=== PATIENT | female | born 1985 | race Caucasian/White ===

== ENCOUNTER 2019-07-27 13:26 | Emergency (ER) | payer OTHER, SELFPAY ==
[2019-07-27 13:57] VITALS: BP 158/98; PULSE 109; RESP 20; TEMP 36.8; O2SAT 97
--- NOTE | 2019-07-27 14:20 | ED.DENTAL ---
HPI - Dental/Oral General Chief complaint: Dental/Oral Stated complaint: tooth pain with swelling Time Seen by Provider: 07/27/19 14:20 Source: patient Mode of arrival: ambulatory Limitations: no limitations History of Present Illness HPI Narrative: Bob Caceres is a 34 yo female with swollen right cheek from dental abscess that started 2 days ago. Swelling increased overnight, difficulty closing mouth. Appears that his tooth 30/31 that is affected Related Data Home Medications Medication Instructions Recorded Confirmed cyclobenzaprine 10 mg PO TID 07/27/19 07/27/19 Allergies Allergy/AdvReac Type Severity Reaction Status Date / Time No Known Allergies Allergy Verified 07/27/19 14:10 Review of Systems Review of Systems: Narrative: CONSTITUTIONAL: Denies fever, chills, sweats. EYES: Denies visual changes, redness, discharge. ENT: Denies rhinorrhea, congestion, sore throat, otalgia. Tooth pain with right cheek swelling CARDIOVASCULAR: Denies chest pain, palpitations, edema. RESPIRATORY: Denies dyspnea, wheezing, cough GASTROINTESTINAL: Denies abdominal pain, nausea, vomiting, diarrhea. GENITOURINARY: Denies dysuria, hematuria, abnormal discharge SKIN: Denies rash or itching. NEUROLOGIC: Denies numbness, or focal weakness. PSYCHIATRIC: Denies anxiety or depression. [facility] Family History Family History Other No acute medical problems Social History Social History Smoking status: Never smoker Alcohol intake: current Comments At time of signature, I agree with nursing past medical, surgical, social and family history. There is no relevant family history pertinent to the presenting complaint. Exam Narrative: Exam Narrative: GENERAL: This is a well-nourished, well-developed patient, in moderate distress. HEAD: normocephalic, atraumatic. EYES: Sclera clear/white. Vision is grossly intact. EARS: External ears normal, auditory canals clear and without drainage, TMs normal without perforation. Hearing grossly intact. NOSE: External nose normal with no obvious nasal discharge, nares without redness, no rhinorrhea. THROAT: Mucous membranes moist, posterior pharynx clear. Mouth: Right cheek swelling, poor dentition, teeth discolored. Abscess in the right cheek, origination of the lower teeth probably tooth 30/31 NECK: Neck supple, non-tender CARDIOVASCULAR: Regular rate and rhythm without murmurs, gallops, or rubs. RESPIRATORY: Clear to auscultation. Breath sounds equal bilaterally. No wheezes, rales, or rhonchi. GASTROINTESTINAL: Abdomen soft, non-tender, SKIN: warm, intact with no suspicious lesions or rash, good texture and turgor. NEURO: awake, alert, and oriented to person, place and time. There were no obvious focal neurologic abnormalities. Steady gait EXTREMITIES: Normal range of motion. No edema BACK: Nontender without deformity or crepitance. No flank tenderness. Course Course Emergency Course: Started on penicillin, high-dose ibuprofen, tramadol Follow-up with dentist as possible Vital Signs Vital signs: Vital Signs Temperature 98.3 F 07/27/19 13:57 Pulse Rate 109 H 07/27/19 13:57 Respiratory Rate 07/27/19 13:57 Blood Pressure 158/98 H 07/27/19 13:57 Pulse Oximetry 97 07/27/19 13:57 Temperature 98.3 F 07/27/19 13:57 Pulse Rate 109 H 07/27/19 13:57 Respiratory Rate 07/27/19 13:57 Blood Pressure 158/98 H 07/27/19 13:57 Pulse Oximetry 97 07/27/19 13:57 MDM - Dental/Oral Differential Diagnosis Differential diagnosis: Likely gingival abscess, dental abscess, fracture of tooth and other Discharge Plan Discharge Clinical Impression: Dental abscess Patient Disposition: Home, Self-Care Condition: Stable Instructions: Antibiotic Form, Dental Abscess (ED) Prescriptions: New penicillin V potassium 500 mg tablet 500 mg PO
== END 2019-07-27 14:32 | disposition home or self-care (01) ==
PROVIDERS: Emergency Provider Nurse Practitioner
DX: K04.7 Periapical abscess without sinus (principal); M79.7 Fibromyalgia
CPT/HCPCS: 99213; G0463

== ENCOUNTER 2022-07-25 16:46 | Emergency (ER) | payer OTHER, SELFPAY ==
[2022-07-25 17:01] VITALS: BP 143/89; PULSE 94; RESP 16; TEMP 36.9; O2SAT 98
--- NOTE | 2022-07-25 17:25 | ED.URI ---
HPI - URI/Sore Throat General Chief Complaint: Upper Respiratory Infection Stated Complaint: Sore Throat Source: patient and RN notes reviewed History of Present Illness HPI Narrative: 37-year-old female presents urgent care with complaints with sore throat since last night. Denies any fevers, vomiting, chest pain, shortness of breath, ear pain, or congestion. Patient has been taking ibuprofen and Tylenol at home with minimal relief. Some parts of this dictation were generated by voice recognition software and may contain typographical and/or grammatical inaccuracies. Related Data Home Medications Medication Instructions Recorded Confirmed cyclobenzaprine 10 mg tablet 10 mg PO TID 07/27/19 07/27/19 Allergies Allergy/AdvReac Type Severity Reaction Status Date / Time No Known Allergies Allergy Verified 07/27/19 14:10 Review of Systems Review of Systems: CONSTITUTIONAL: Denies fever, chills, or sweats. EYES: Denies visual changes, redness, or discharge. ENT: sore throat CARDIOVASCULAR: Denies chest pain, palpitations, or edema. RESPIRATORY: Denies cough or dyspnea. GASTROINTESTINAL: Denies abdominal pain, nausea, vomiting, or diarrhea. GENITOURINARY: Denies dysuria or hematuria. SKIN: Denies rash or itching. MUSCULOSKELETAL: Denies back pain, joint pain, or myalgia. NEUROLOGIC: Denies headache, numbness, or weakness. [facility] Family History Family History Other No acute medical problems Social History Social History Smoking status: Never smoker Alcohol intake: current Comments At the time of my signature, I reviewed and agree with the nursing past medical, surgical, social, and family history. There is no relevant family history pertinent to the patient complaint. Exam Narrative: GENERAL: This is a well-nourished, well-developed patient, in no apparent distress. HEAD: normocephalic, atraumatic. EYES: Sclera clear/white. Vision is grossly intact. EARS: External ears normal, auditory canals clear and without drainage, TMs normal without perforation. Hearing grossly intact. NOSE: External nose normal with no obvious nasal discharge, nares without redness, no rhinorrhea. THROAT: Mucous membranes moist, posterior pharynx erythemic. NECK: Neck supple, non-tender without lymphadenopathy, masses or thyromegaly. CARDIOVASCULAR: Regular rate RESPIRATORY: No respiratory distress SKIN: warm, intact with no suspicious lesions or rash, good texture and turgor. NEURO: awake, alert, and oriented to person, place and time. There were no obvious focal neurologic abnormalities. Course Course Level of Care: Express Care Visit Vital Signs Vital signs: Vital Signs Temperature 98.5 F 07/25/22 17:01 Pulse Rate 94 07/25/22 17:01 Respiratory Rate 16 07/25/22 17:01 Blood Pressure 143/89 H 07/25/22 17:01 Pulse Oximetry 98 07/25/22 17:01 Oxygen Delivery Room Air 07/25/22 17:01 Temperature 98.5 F 07/25/22 17:01 Pulse Rate 94 07/25/22 17:01 Respiratory Rate 16 07/25/22 17:01 Blood Pressure 143/89 H 07/25/22 17:01 Pulse Oximetry 98 07/25/22 17:01 Oxygen Delivery Room Air 07/25/22 17:01 Reviewed MDM - URI/Sore Throat MDM Narrative Medical decision making narrative: Rapid strep is negative in the office; however we will send to the lab for confirmation; there is a small percentage chance that it can come back positive; if it is, we will call you in 2-3days; and your prescription will be call in to your pharmacy. However, there is NO indication for antibiotic at this time. -Oral rinses such as: Salt water gargles and/or may use topical anesthetic (eg. Chloraseptic spray) or lozenges to relieve dryness or throat pain. -Take tylenol and ibuprofen as needed for pain and fever as directed. -Frequent hand washing or hand structures assembler is one of the best ways to prevent spread
== END 2022-07-25 17:30 | disposition home or self-care (01) ==
PROVIDERS: Emergency Provider Nurse Practitioner Family; PCP Internal Medicine
DX: J02.9 Acute pharyngitis, unspecified (principal); M79.7 Fibromyalgia
CPT/HCPCS: 87081; 87880; 99213; G0463

== ENCOUNTER 2025-04-29 11:24 | Emergency (ER) | payer OTHER, SELFPAY ==
--- NOTE | ~2025-04-29 | XR_ITS ---
EXAMINATION: XR hip LT 2V w AP pelvis DATE: 04/29/2025 11:56 INDICATION: Injury TECHNIQUE: Left hip and pelvis x-rays were obtained. COMPARISON: None. IMPRESSION: 1. No displaced fracture, dislocation or aggressive bone lesion. 2. Pelvic bones appear intact; liturgical music director pelvic bones partially obscured by overlying stool and bowel gas. Reviewed, dictated and finalized at location A. ITUTION[employer] NUTRITION CONSULTANT IMPRESSION: 1. No displaced fracture, dislocation or aggressive bone lesion. 2. Pelvic bones appear intact; liturgical music director pelvic bones partially obscured by overly ing stool and bowel gas.
[2025-04-29 11:32] VITALS: BP 138/79; PULSE 84; RESP 20; TEMP 36.8; O2SAT 100
--- NOTE | 2025-04-29 12:36 | ED.LOWEXIN ---
HPI - Extremity Injury (Lower) General Chief Complaint: Extremity Injury, Lower Stated Complaint: Fall Injury/Left Hip Time Seen by Provider: 04/29/25 12:15 Source: patient and RN notes reviewed Mode of arrival: ambulatory Limitations: no limitations History of Present Illness HPI Narrative: 39-year-old female Presents Express Care complaining of injury to left hip 1 week ago. Patient reports slipped on the ice outside at home and injured her left hip. Patient is in her head, loss consciousness, neck pain, back pain, or any other injuries. Patient reports pain primarily with walking or hip flexion. Patient's has been taking Tylenol or ibuprofen, ice, heat with some relief.. Patient denies any numbness, tingling or any other injuries. Patient denies any significant past medical history. Related Data Home Medications ?Medication ?Instructions ?Recorded ?Confirmed ?Last Taken ?Type bupropion HCl 150 mg 24 hr tablet, mg PO 04/29/25 Unknown History extended release venlafaxine 150 mg mg PO 04/29/25 Unknown History capsule,extended release 24 hr Allergies Allergy/AdvReac Type Severity Reaction Status Date / Time No Known Allergies Allergy Verified 04/29/25 11:34 Review of Systems Review of Systems: CONSTITUTIONAL: Denies fever, chills, or sweats. EYES: Denies visual changes, redness, or discharge. ENT: Denies rhinorrhea, congestion, sore throat, or otalgia. CARDIOVASCULAR: Denies chest pain, palpitations, or edema. RESPIRATORY: Denies cough or dyspnea. GASTROINTESTINAL: Denies abdominal pain, nausea, vomiting, or diarrhea. GENITOURINARY: Denies dysuria or hematuria. SKIN: Denies rash, wound, or itching. MUSCULOSKELETAL: Denies back pain, joint pain, or myalgia. Positive for left hip pain NEUROLOGIC: Denies headache, numbness, or weakness. PSYCHIATRIC: Denies anxiety or depression. All other systems reviewed are negative, except as documented in HPI. [facility] Family History Family History Other No acute medical problems Social History Social History Smoking status: Never smoker Alcohol intake: current Comments At the time of my signature, I reviewed and agree with the nursing past medical, surgical, social, and family history. There is no relevant family history pertinent to the patient complaint. Exam Narrative: GENERAL: This is a well-nourished, well-developed adult, in no apparent distress. They are non ill-appearing, nontoxic appearing. HEAD: normocephalic, atraumatic. EYES: Sclera clear/white. Vision is grossly intact. Conjunctiva normal. Extraocular movement intact. EARS: External ears normal Hearing grossly intact. NOSE: External nose normal THROAT: Mucous membranes moist NECK: Neck supple CARDIOVASCULAR: Regular rate and rhythm RESPIRATORY: Respiratory rate normal, respiratory effort nonlabored, no respiratory distress NEURO: awake, alert, and oriented to person, place and time. There were no obvious focal neurologic abnormalities. EXTREMITIES: No obvious deformity, injury, swelling, bruising, redness. There is pain through full range of motion. Lateral tenderness to palpation. Capillary refill less than 3 seconds. Normal sensation. Neurovascular status intact distal injury. No shortening or rotation. BACK: Nontender without deformity. Course Course Level of Care: Express Care Visit Vital Signs Vital signs: Vital Signs Temperature 98.2 F 04/29/25 11:32 Pulse Rate 84 04/29/25 11:32 Respiratory Rate 20 04/29/25 11:32 Blood Pressure 138/79 04/29/25 11:32 Pulse Oximetry 100 04/29/25 11:32 Oxygen Delivery Room Air 04/29/25 11:32 Temperature 98.2 F 04/29/25 11:32 Pulse Rate 84 04/29/25 11:32 Respiratory Rate 20 04/29/25 11:32 Blood Pressure 138/79 04/29/25 11:32 Pulse Oximetry 100 04/29/25 11:32 Oxygen Delivery Room Air 04/29/25 11:32 [facility] Narrative Medical decision making narrative: X-ray left hip negative for any fracture or acute findings. Likely hip contusion. Discussed rice therapy and supportive care. Will give her her ortho as needed if pain is persisting after 1 more week. Discussed physical exam findings. Advised supportive measures and signs/symptoms to go to the ER. Pt is appropriate for outpt treatment and f/u. Differential Diagnosis Differential Diagnosis: Hip sprain, hip contusion, hip fracture, hip bursitis Imaging Data Radiologist's impression: ITS Impressions Hip/Pelvis X-Ray 04/29/25 11:59 IMPRESSION: 1. No displaced fracture, dislocation or aggressive bone lesion. 2. 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 Critical Care Time Critical Care Time Critical Care Time: No Discharge Plan Discharge Clinical Impression: Fall Qualifiers: Encounter type: initial encounter Qualified Code(s): W19.XXXA - Unspecified fall, initial encounter Injury of hip, left Qualifiers: Encounter type: initial encounter Qualified Code(s): S79.912A - Unspecified injury of left hip, initial encounter Patient Disposition: Home Condition: Stable Instructions: Hip Pain (ED) Additional Instructions: The x-ray left hip is negative for any fractures or acute findings. Rest and elevate the leg; bear weight as tolerated Apply ice or heat 15-20 minute intervals several times a day Try taking naproxen for pain, follow instructions on the bottle, do not combine any additional NSAIDs such as Motrin, ibuprofen, ketorolac, meloxicam, etc. may alternate with Tylenol as well, follow instructions on the bottle. Follow up with your primary care provider orthopedist in 1 week Patient Language: French Prescriptions: No Action venlafaxine 150 mg capsule,extended release 24hr PO bupropion HCl 150 mg tablet extended release 24 hr PO Follow-up/Referrals: Negrete,Sofia Kee APN [Primary Care Provider, Unknown] Lopez Gautam MD [Physician, Orthopedics] - 1 Week Time of Disposition: 12:24
== END 2025-04-29 12:27 | disposition home or self-care (01) ==
PROVIDERS: PCP Nurse Practitioner Family
DX: S79.912A Unspecified injury of left hip, initial encounter (principal); W00.0XXA Fall on same level due to ice and snow, initial encounter
CPT/HCPCS: 73502; 99213; G0463